=== PATIENT | female | born 1970 | race Caucasian/White ===

== ENCOUNTER 2018-07-27 04:28 | Emergency (ER) | payer MEDICAID ==
[~2018-07-27] VITALS: Ht 152.4 cm; Wt 83.9 kg
[2018-07-27 04:33] VITALS: Ht 152.4 cm; Wt 83.9 kg
[2018-07-27 05:49] VITALS: BP 118/72
== END 2018-07-27 05:50 | disposition home or self-care (01) ==
LOC: ED 04:28
DX: R51 Headache (principal); R50.9 Fever, unspecified; M54.2 Cervicalgia
CPT/HCPCS: J0780; J1200; J7030